=== PATIENT | male | born 1995 | race Hispanic/Latino ===

== ENCOUNTER 2019-07-28 20:09 | Emergency (ER) | payer OTHER | END 2019-07-28 21:30 | disposition home or self-care (01) | LOC: ERS 20:09 | DX: U07.1 COVID-19 (principal) | CPT/HCPCS: 87635; 99283; U0003 ==

== ENCOUNTER 2021-09-03 19:52 | Emergency (ER) | payer OTHER, SELFPAY ==
[2021-09-03] MEDS ORDERED: Lidocaine 1% PF 5 ML VIAL ONE ×2 (20:39→20:49)
[2021-09-03] MEDS ORDERED: Boostrix 0.5 ML (Tdap) VIAL ONE (20:39)
== END 2021-09-03 22:38 | disposition home or self-care (01) ==
LOC: ERS 19:52
DX: S61.411A Laceration without foreign body of right hand, initial encounter (principal); Z23 Encounter for immunization; W25.XXXA Contact with sharp glass, initial encounter
CPT/HCPCS: 12001; 90471; 90715

== ENCOUNTER 2021-09-11 17:37 | Emergency (ER) | payer SELFPAY | END 2021-09-11 18:36 | disposition home or self-care (01) | LOC: ERS 17:37 | DX: S61.411D Laceration without foreign body of right hand, subsequent encounter (principal); W26.0XXD Contact with knife, subsequent encounter ==